=== PATIENT | male | born 1955 | race Caucasian/White ===

== ENCOUNTER → 2017-08-06 | Outpatient (CLI) | payer BC | END | disposition home or self-care (01) | DX: R26.2 Difficulty in walking, not elsewhere classified (principal); M25.552 Pain in left hip; M25.652 Stiffness of left hip, not elsewhere classified; M62.81 Muscle weakness (generalized); Z74.1 Need for assistance with personal care; M16.12 Unilateral primary osteoarthritis, left hip | CPT/HCPCS: 97150 GO; 97161 GP; 97165 GO; 97530 GP ==

== ENCOUNTER 2017-08-12 22:02 | Inpatient (IN) | payer BC ==
[~2017-08-12] VITALS: Ht 172.7 cm; Wt 133.2 kg
[~2017-08-12 22:02] MED LIST: CELEBREX200 MG PO; FISH OIL 1,2001 EAC4 PO; FLOMAX0.4 MG PO; HYDROCHLOROTHIA25 MG PO; MAGNESIUM250 MG PO; POTASSIUM-9999 MG PO; RED YEAST RICE600 M1 PO; SUPER B COMPL400 MCG PO; TOLTERODINE TART2 M1 PO; VITAMIN C1000 MG PO; VITAMIN E400 UNIT PO; ZESTRIL5 MG PO
[2017-08-13 07:30] VITALS: BP 115/74
[2017-08-13 12:50] LABS: HEMATOCRIT 38.3 % (38.0-50.0); HEMOGLOBIN 12.9 G/DL (12.5-16.6); MCH 30.1 PG (29.0-34.0); MCHC 33.7 G/DL (30.0-36.0); MCV 89.3 FL (86-99); PLATELET COUNT 260 K/uL (156-360); RBC DIS.WIDTH-SD 42.4 % (39-53); RED BLOOD COUNT 4.29 M/uL (4.00-5.50); WHITE BLOOD COUNT 8.9 K/uL (4.1-10.2)
[2017-08-13 13:56] VITALS: BP 118/68
[2017-08-13 16:02] VITALS: BP 137/73
[2017-08-13 19:51] VITALS: BP 116/68
[2017-08-14] VITALS (7 sets, daily range): BP systolic 99–131; BP diastolic 55–76
[2017-08-14 04:52] LABS: HEMATOCRIT 38.9 % (38.0-50.0); HEMOGLOBIN 13.3 G/DL (12.5-16.6)
[2017-08-14 05:02] LABS: CHLORIDE 99 mEq/L (99-109); SODIUM 135 mEq/L (136-147)
[2017-08-14 05:03] LABS: GLUCOSE 127 mg/dL (70-99)
[2017-08-14 05:07] LABS: CREATININE 1.1 mg/dL (0.6-1.3); GFR ESTIMATE (CALCULATED) > 59 mL/min/ (58.99-99999)
[2017-08-14 05:08] LABS: UREA NITROGEN (BUN) 23 mg/dL (9-23)
[2017-08-15 00:18] VITALS: BP 98/55
[2017-08-15 02:42] VITALS: BP 106/55
[2017-08-15 04:15] VITALS: BP 112/53
[2017-08-15 08:00] VITALS: BP 121/60
[2017-08-15] MEDS ORDERED: ENDOCET 5-3251 EACH PO (08:53)
[2017-08-15] MEDS ORDERED: LOVENOX40 MG/0.4 SC (08:53)
[2017-08-15 12:24] VITALS: BP 115/61
== END 2017-08-15 13:45 | disposition home health service (06) | DRG 470 ==
LOC: ENRESERV 22:02 → 3WEST 08-13 06:47 → 2SOUTH 08-13 06:47 → 3WEST 08-13 13:34 → 2SOUTH 08-13 15:03 → 3WEST 08-15 13:45
PROVIDERS: Orthopaedic Surgery
PROC: 0SRB0JA Replacement of Left Hip Joint with Synthetic Substitute, Uncemented, Open Approach (ICD-10-PCS; principal; 2017-08-13)
DX: M16.12 Unilateral primary osteoarthritis, left hip (principal); I10 Essential (primary) hypertension; N40.0 Benign prostatic hyperplasia without lower urinary tract symptoms; Z96.653 Presence of artificial knee joint, bilateral
CPT/HCPCS: 73501; 73502; 73522; 80048; 85014; 85018; 85027; 97530 GO; J0131; J0690; J1100; J1170; J1650; J2250; J2405; J3010; J7030; J7050